=== PATIENT | female | born 1965 | race Caucasian/White ===

== ENCOUNTER 2021-03-13 09:43 | Inpatient (IN) ==
[2021-03-13] MEDS ORDERED: Lactated Ringers 1000 ml BAG 1,000 ML IV ONE ×2 (09:59→14:35)
[2021-03-13] MEDS ORDERED: Albuterol HFA INHALER 8 gm MDI INH ONE (09:59)
[2021-03-13 10:42] LABS: ABS Lymphocytes 0.6 10^3/ul (1.0-4.8); ABS Neutrophils 7.8 10^3/ul (1.5-7.7); Hematocrit 38 % (35-47); Hemoglobin 12.8 g/dL (12.0-16.0); Lymphocyte % 6.8 %; Mean Corpuscular HGB Conc 34 g/dL (31-36); Mean Corpuscular Hemoglobin 32 pg (27-31); Mean Corpuscular Volume 94 fL (80-97); Mean Platelet Volume 9.4 fL (7.4-10.4); Platelet Count 148 10^3/uL (150-450); Red Blood Count 3.97 10^6 /uL (3.70-4.87); Red Cell Distribution Width 14 % (10-15); White Blood Count 9.5 10^3/uL (3.5-10.8)
[2021-03-13 10:55] LABS: Albumin 4.1 g/dL (3.2-5.2); Albumin/Globulin Ratio 1.5 (1-3); Calcium 9.2 mg/dL (8.6-10.3); Globulin 2.8 g/dL (2-4); Total Bilirubin 0.3 mg/dL (0.2-1.0); Total Protein 6.9 g/dL (6.4-8.9); eGFR CKD-EPI 46.2 (>60)
[2021-03-13] MEDS ORDERED: Iodixanol (CONTRAST) 320 MG/ML 100 ML SDV IV ONE (13:17)
[2021-03-13] MEDS ORDERED: cefTRIAXone 2 GM ADDV.VIAL 2 GM in NS 0.9% 100 ml BAG 100 ML IVPB ONE (13:51)
[2021-03-13] MEDS ORDERED: Azithromycin 500 mg/250 ml NS 500 MG/250 ML BAG IVPB ONE (13:51)
[2021-03-13 16:35] LABS: C Reactive Protein 151.12 mg/L (<8.01)
[2021-03-13] MEDS ORDERED: Albuterol HFA INHALER 8 gm MDI INH PRN ×2 (17:08→20:48)
[2021-03-13] MEDS: Enoxaparin 40 MG/0.4 ML SYR SUBCUT SCH (17:58)
[2021-03-13] MEDS ORDERED: CLOZAPINE 200 MG PO SCH (21:00)
[2021-03-13] MEDS: Albuterol/Ipratropium NEB.SOL (2.5/0.5 MG) 3 ML NEB.SOLN INH SCH (21:05)
[2021-03-14] MEDS ORDERED: Albuterol/Ipratropium NEB.SOL (2.5/0.5 MG) 3 ML NEB.SOLN INH ONE (01:01)
[2021-03-14 01:32] LABS: PCO2 Arterial 50 mmHg (35-45); PO2 Arterial 77 mmHg (80-100)
[2021-03-14] MEDS: Albuterol/Ipratropium NEB.SOL (2.5/0.5 MG) 3 ML NEB.SOLN INH SCH ×4 (01:33→19:27)
[2021-03-14] MEDS ORDERED: diPHENhydraMINE 25 mg TAB PO ONE (01:49)
[2021-03-14] MEDS ORDERED: Lactated Ringers 1000 ml BAG 1,000 ML IV ONE (01:49)
[2021-03-14] MEDS: methylPREDNISolone SOD 40 mg/ml 1 ml VIAL IV SCH ×2 (01:58→14:49)
[2021-03-14 06:56] LABS: ABS Lymphocytes 0.5 10^3/ul (1.0-4.8); ABS Monocytes 0.2 10^3/ul (0-0.8); ABS Neutrophils 6.4 10^3/ul (1.5-7.7); Hematocrit 34 % (35-47); Hemoglobin 11.6 g/dL (12.0-16.0); Lymphocyte % 6.7 %; Mean Corpuscular HGB Conc 34 g/dL (31-36); Mean Corpuscular Hemoglobin 32 pg (27-31); Mean Corpuscular Volume 95 fL (80-97); Platelet Count 129 10^3/uL (150-450); Red Blood Count 3.59 10^6 /uL (3.70-4.87); Red Cell Distribution Width 14 % (10-15); White Blood Count 7.1 10^3/uL (3.5-10.8)
[2021-03-14 07:09] LABS: Calcium 9.1 mg/dL (8.6-10.3); Potassium 4.6 mmol/L (3.5-5.0); eGFR CKD-EPI 89.9 (>60)
[2021-03-14] MEDS: Mometasone/Formoter 200/5 MDI INH SCH ×2 (07:28→19:28)
[2021-03-14 13:49] LABS: Ferritin 113.9 ng/mL (11-307)
[2021-03-14] MEDS: cefTRIAXone 2 GM ADDV.VIAL 2 GM in NS 0.9% 100 ml BAG 100 ML IV SCH (14:49)
[2021-03-14] MEDS: Azithromycin 500 mg/250 ml NS 500 MG/250 ML BAG IVPB SCH (16:04)
[2021-03-14] MEDS: Enoxaparin 40 MG/0.4 ML SYR SUBCUT SCH (16:08)
[2021-03-14] MEDS: guaiFENesin 100 mg/5 ml LIQ unit dose cup PO PRN ×2 (18:25→22:16)
[2021-03-15] MEDS: Albuterol/Ipratropium NEB.SOL (2.5/0.5 MG) 3 ML NEB.SOLN INH SCH ×2 (01:58→07:32)
[2021-03-15] MEDS: methylPREDNISolone SOD 40 mg/ml 1 ml VIAL IV SCH ×2 (02:42→15:21)
[2021-03-15 06:47] LABS: Hematocrit 35 % (35-47); Hemoglobin 11.5 g/dL (12.0-16.0); Mean Corpuscular HGB Conc 34 g/dL (31-36); Mean Corpuscular Hemoglobin 32 pg (27-31); Mean Corpuscular Volume 96 fL (80-97); Platelet Count 155 10^3/uL (150-450); Red Blood Count 3.59 10^6 /uL (3.70-4.87); Red Cell Distribution Width 14 % (10-15); White Blood Count 8.7 10^3/uL (3.5-10.8)
[2021-03-15 07:15] LABS: Calcium 9.1 mg/dL (8.6-10.3); Magnesium 1.9 mg/dL (1.9-2.7); Potassium 4.7 mmol/L (3.5-5.0); eGFR CKD-EPI 102.6 (>60)
[2021-03-15] MEDS: Mometasone/Formoter 200/5 MDI INH SCH ×2 (08:59→19:22)
[2021-03-15] MEDS: Albuterol HFA INHALER 8 gm MDI INH SCH ×2 (14:12→19:25)
[2021-03-15] MEDS: Enoxaparin 40 MG/0.4 ML SYR SUBCUT SCH (15:21)
[2021-03-15] MEDS: cefTRIAXone 2 GM ADDV.VIAL 2 GM in NS 0.9% 100 ml BAG 100 ML IV SCH (15:21)
[2021-03-15] MEDS: Azithromycin 500 mg/250 ml NS 500 MG/250 ML BAG IVPB SCH (16:35)
[2021-03-15] MEDS: guaiFENesin 100 mg/5 ml LIQ unit dose cup PO PRN (21:27)
[2021-03-16] MEDS: methylPREDNISolone SOD 40 mg/ml 1 ml VIAL IV SCH (01:11)
[2021-03-16] MEDS: Albuterol HFA INHALER 8 gm MDI INH SCH ×4 (01:30→19:30)
[2021-03-16] MEDS: Mometasone/Formoter 200/5 MDI INH SCH ×2 (07:57→19:32)
[2021-03-16 08:32] LABS: ABS Lymphocytes 0.7 10^3/ul (1.0-4.8); ABS Monocytes 0.5 10^3/ul (0-0.8); ABS Neutrophils 5.7 10^3/ul (1.5-7.7); Hematocrit 35 % (35-47); Hemoglobin 11.7 g/dL (12.0-16.0); Lymphocyte % 10.1 %; Mean Corpuscular HGB Conc 33 g/dL (31-36); Mean Corpuscular Hemoglobin 32 pg (27-31); Mean Corpuscular Volume 97 fL (80-97); Mean Platelet Volume 8.8 fL (7.4-10.4); Platelet Count 174 10^3/uL (150-450); Red Blood Count 3.64 10^6 /uL (3.70-4.87); Red Cell Distribution Width 14 % (10-15); White Blood Count 6.9 10^3/uL (3.5-10.8)
[2021-03-16 08:51] LABS: Calcium 9.6 mg/dL (8.6-10.3); Potassium 4.5 mmol/L (3.5-5.0); eGFR CKD-EPI 100.8 (>60)
[2021-03-16] MEDS ORDERED: Albuterol/Ipratropium NEB.SOL (2.5/0.5 MG) 3 ML NEB.SOLN INH SCH (10:00)
[2021-03-16] MEDS: Enoxaparin 40 MG/0.4 ML SYR SUBCUT SCH ×2 (15:17→16:07)
[2021-03-16] MEDS: cefTRIAXone 2 GM ADDV.VIAL 2 GM in NS 0.9% 100 ml BAG 100 ML IV SCH ×2 (15:17→15:22)
[2021-03-17] MEDS: Albuterol HFA INHALER 8 gm MDI INH SCH ×4 (00:58→20:00)
[2021-03-17 06:26] LABS: Hematocrit 36 % (35-47); Mean Corpuscular HGB Conc 34 g/dL (31-36); Mean Corpuscular Hemoglobin 32 pg (27-31); Mean Corpuscular Volume 94 fL (80-97); Mean Platelet Volume 8.4 fL (7.4-10.4); Platelet Count 194 10^3/uL (150-450); Red Blood Count 3.77 10^6 /uL (3.70-4.87); Red Cell Distribution Width 14 % (10-15); White Blood Count 7.1 10^3/uL (3.5-10.8)
[2021-03-17 06:42] LABS: Calcium 9.7 mg/dL (8.6-10.3); Potassium 4.5 mmol/L (3.5-5.0); eGFR CKD-EPI 102.6 (>60)
[2021-03-17] MEDS: Mometasone/Formoter 200/5 MDI INH SCH ×2 (08:12→23:52)
[2021-03-17 08:38] LABS: ABS Lymphocytes 1.9 10^3/ul (1.0-4.8); ABS Monocytes 0.9 10^3/ul (0-0.8); ABS Neutrophils 4.3 10^3/ul (1.5-7.7); Lymphocyte % 26.9 %; Nucleated Red Blood Cells % 0.1; RBC Morphology Normal (Normal)
[2021-03-17] MEDS: Enoxaparin 40 MG/0.4 ML SYR SUBCUT SCH (16:14)
[2021-03-18] MEDS ORDERED: Albuterol 2.5mg/3 ml (0.083%) NEB.SOLN INH PRN (03:38)
[2021-03-18 03:40] LABS: ABS Lymphocytes 0.9 10^3/ul (1.0-4.8); ABS Monocytes 0.4 10^3/ul (0-0.8); ABS Neutrophils 5.3 10^3/ul (1.5-7.7); Hematocrit 37 % (35-47); Hemoglobin 12.2 g/dL (12.0-16.0); Lymphocyte % 13.9 %; Mean Corpuscular HGB Conc 33 g/dL (31-36); Mean Corpuscular Hemoglobin 31 pg (27-31); Mean Corpuscular Volume 96 fL (80-97); Mean Platelet Volume 8.6 fL (7.4-10.4); Nucleated Red Blood Cells % 0.1; Platelet Count 220 10^3/uL (150-450); Red Cell Distribution Width 14 % (10-15); White Blood Count 6.7 10^3/uL (3.5-10.8)
[2021-03-18 03:57] LABS: Calcium 9.5 mg/dL (8.6-10.3); Potassium 4.6 mmol/L (3.5-5.0); eGFR CKD-EPI 102.6 (>60)
[2021-03-18 05:19] LABS: PCO2 Arterial 62 mmHg (35-45); PO2 Arterial 86 mmHg (80-100)
[2021-03-18] MEDS: Albuterol HFA INHALER 8 gm MDI INH SCH ×2 (07:15→19:59)
[2021-03-18] MEDS: Mometasone/Formoter 200/5 MDI INH SCH ×2 (07:15→19:59)
[2021-03-18] MEDS: guaiFENesin 100 mg/5 ml LIQ unit dose cup PO PRN (11:27)
[2021-03-18 11:34] LABS: C Reactive Protein 15.21 mg/L (<8.01)
[2021-03-18 12:38] LABS: Erythrocyte Sed Rate 5 mm/Hr (0-29)
[2021-03-18] MEDS: Enoxaparin 40 MG/0.4 ML SYR SUBCUT SCH (17:42)
[2021-03-19] MEDS: Albuterol HFA INHALER 8 gm MDI INH SCH ×2 (08:11→20:01)
[2021-03-19] MEDS: Mometasone/Formoter 200/5 MDI INH SCH ×2 (08:12→20:01)
[2021-03-19 10:11] LABS: Hematocrit 39 % (35-47); Hemoglobin 12.8 g/dL (12.0-16.0); Mean Corpuscular HGB Conc 33 g/dL (31-36); Mean Corpuscular Hemoglobin 31 pg (27-31); Mean Corpuscular Volume 95 fL (80-97); Mean Platelet Volume 8.1 fL (7.4-10.4); Platelet Count 244 10^3/uL (150-450); Red Cell Distribution Width 14 % (10-15); White Blood Count 8.8 10^3/uL (3.5-10.8)
[2021-03-19 10:31] LABS: Anion Gap 7 mmol/L (2-11); Blood Urea Nitrogen 18 mg/dL (6-24); C Reactive Protein 8.22 mg/L (<8.01); CO2 Carbon Dioxide 35 mmol/L (22-32); Calcium 9.6 mg/dL (8.6-10.3); Chloride 96 mmol/L (101-111); Glucose 200 mg/dL (70-100); Magnesium 1.9 mg/dL (1.9-2.7); Sodium 138 mmol/L (135-145); eGFR CKD-EPI 94.3 (>60)
[2021-03-19 10:57] LABS: Rheumatoid Factor < 10 IU/mL (<15)
[2021-03-19] MEDS: Enoxaparin 40 MG/0.4 ML SYR SUBCUT SCH (18:00)
[2021-03-19] MEDS: guaiFENesin 100 mg/5 ml LIQ unit dose cup PO PRN (21:33)
[2021-03-20 06:51] LABS: Hematocrit 39 % (35-47); Hemoglobin 12.9 g/dL (12.0-16.0); Mean Corpuscular HGB Conc 33 g/dL (31-36); Mean Corpuscular Hemoglobin 32 pg (27-31); Mean Corpuscular Volume 95 fL (80-97); Mean Platelet Volume 8.5 fL (7.4-10.4); Platelet Count 254 10^3/uL (150-450); Red Blood Count 4.08 10^6 /uL (3.70-4.87); Red Cell Distribution Width 14 % (10-15); White Blood Count 10.3 10^3/uL (3.5-10.8)
[2021-03-20 07:00] LABS: ABS Lymphocytes 1.3 10^3/ul (1.0-4.8); ABS Monocytes 0.4 10^3/ul (0-0.8); ABS Neutrophils 8.5 10^3/ul (1.5-7.7); Lymphocyte % 12.8 %
[2021-03-20 07:14] LABS: Calcium 9.8 mg/dL (8.6-10.3); Magnesium 1.9 mg/dL (1.9-2.7); Potassium 4.7 mmol/L (3.5-5.0); eGFR CKD-EPI 100.8 (>60)
[2021-03-20] MEDS: Albuterol HFA INHALER 8 gm MDI INH SCH ×2 (07:39→19:45)
[2021-03-20] MEDS: Mometasone/Formoter 200/5 MDI INH SCH ×2 (07:39→19:45)
[2021-03-20] MEDS: Enoxaparin 40 MG/0.4 ML SYR SUBCUT SCH (18:43)
[2021-03-21 06:24] LABS: Hematocrit 42 % (35-47); Hemoglobin 13.7 g/dL (12.0-16.0); Mean Corpuscular HGB Conc 33 g/dL (31-36); Mean Corpuscular Hemoglobin 31 pg (27-31); Mean Corpuscular Volume 95 fL (80-97); Mean Platelet Volume 8.4 fL (7.4-10.4); Platelet Count 273 10^3/uL (150-450); Red Blood Count 4.37 10^6 /uL (3.70-4.87); Red Cell Distribution Width 13 % (10-15); White Blood Count 11.9 10^3/uL (3.5-10.8)
[2021-03-21 06:42] LABS: Calcium 9.7 mg/dL (8.6-10.3); Potassium 4.6 mmol/L (3.5-5.0); eGFR CKD-EPI 102.6 (>60)
[2021-03-21] MEDS: Mometasone/Formoter 200/5 MDI INH SCH ×2 (07:37→20:24)
[2021-03-21] MEDS: Albuterol HFA INHALER 8 gm MDI INH SCH ×2 (07:41→20:24)
[2021-03-21 08:29] LABS: ABS Lymphocytes 1.3 10^3/ul (1.0-4.8); ABS Monocytes 0.6 10^3/ul (0-0.8); Lymphocyte % 11.2 %; Nucleated Red Blood Cells % 0.1
[2021-03-21] MEDS: Enoxaparin 40 MG/0.4 ML SYR SUBCUT SCH (20:40)
[2021-03-21] MEDS: Nicotine Lozenge mini 2 MG LOZNG.MINI MT PRN (20:42)
[2021-03-22 06:44] LABS: Hematocrit 40 % (35-47); Hemoglobin 13.1 g/dL (12.0-16.0); Mean Corpuscular HGB Conc 33 g/dL (31-36); Mean Corpuscular Hemoglobin 31 pg (27-31); Mean Corpuscular Volume 95 fL (80-97); Platelet Count 260 10^3/uL (150-450); Red Blood Count 4.19 10^6 /uL (3.70-4.87); Red Cell Distribution Width 14 % (10-15)
[2021-03-22 07:01] LABS: Calcium 9.6 mg/dL (8.6-10.3); Potassium 4.3 mmol/L (3.5-5.0); eGFR CKD-EPI 101.9 (>60)
[2021-03-22] MEDS: Mometasone/Formoter 200/5 MDI INH SCH ×2 (08:28→20:10)
[2021-03-22] MEDS: Albuterol HFA INHALER 8 gm MDI INH SCH ×2 (08:28→20:11)
[2021-03-22 10:39] LABS: Complement C3 112 mg/dL (75 - 175)
[2021-03-22 11:00] LABS: Anti SSA/RO Antibody <0.2 U; JO-1 Antibody <0.2 U; SS-B/La Antibody <0.2 U
[2021-03-22 11:56] LABS: Aldolase 10.3 U/L (<7.7)
[2021-03-22] MEDS: Nicotine Lozenge mini 2 MG LOZNG.MINI MT PRN (15:51)
[2021-03-22 16:45] LABS: Cyclic Citrullinated Pept IgG <15.6 U
[2021-03-22] MEDS: Enoxaparin 40 MG/0.4 ML SYR SUBCUT SCH (17:44)
[2021-03-23 06:17] LABS: Hematocrit 43 % (35-47); Hemoglobin 13.9 g/dL (12.0-16.0); Mean Corpuscular HGB Conc 33 g/dL (31-36); Mean Corpuscular Hemoglobin 31 pg (27-31); Mean Corpuscular Volume 95 fL (80-97); Platelet Count 264 10^3/uL (150-450); Red Blood Count 4.48 10^6 /uL (3.70-4.87); Red Cell Distribution Width 14 % (10-15); White Blood Count 14.5 10^3/uL (3.5-10.8)
[2021-03-23 06:19] LABS: ABS Lymphocytes 1.5 10^3/ul (1.0-4.8); ABS Monocytes 0.5 10^3/ul (0-0.8); ABS Neutrophils 12.6 10^3/ul (1.5-7.7); Lymphocyte % 10.1 %
[2021-03-23 06:35] LABS: Calcium 9.5 mg/dL (8.6-10.3); Potassium 4.5 mmol/L (3.5-5.0); eGFR CKD-EPI 97.5 (>60)
[2021-03-23] MEDS: Mometasone/Formoter 200/5 MDI INH SCH ×2 (08:53→19:51)
[2021-03-23] MEDS: Albuterol HFA INHALER 8 gm MDI INH SCH ×2 (08:54→19:54)
[2021-03-23] MEDS: Enoxaparin 40 MG/0.4 ML SYR SUBCUT SCH (17:06)
[2021-03-24] MEDS ORDERED: Albuterol HFA INHALER 8 gm MDI INH PRN (07:17)
[2021-03-24] MEDS: Albuterol HFA INHALER 8 gm MDI INH SCH (08:28)
[2021-03-24] MEDS: Mometasone/Formoter 200/5 MDI INH SCH (08:31)
[2021-03-24 11:51] VITALS: BP 119/64
[2021-03-24] MEDS ORDERED: Calcium Carb (TUMS) 500 mg CHEW TAB PO PRN (12:01)
== END 2021-03-24 14:05 | DRG 720 ==
LOC: ED 09:43 → SUATTDRO 16:55 → EDHOLD 17:22 → MEDTELE 23:21
PROVIDERS: ADMIT Internal Medicine; ATTEND Internal Medicine

== ENCOUNTER 2022-05-24 00:21 | Inpatient (IN) ==
[2022-05-24 02:32] LABS: ABS Lymphocytes 1.1 10^3/ul (1.0-4.8); ABS Monocytes 0.7 10^3/ul (0-0.8); ABS Neutrophils 4.9 10^3/ul (1.5-7.7); Hematocrit 39 % (35-47); Hemoglobin 12.6 g/dL (12.0-16.0); Lymphocyte % 16.1 %; Mean Corpuscular HGB Conc 32 g/dL (31-36); Mean Corpuscular Hemoglobin 30 pg (27-31); Mean Corpuscular Volume 93 fL (80-97); Mean Platelet Volume 7.7 fL (7.4-10.4); Platelet Count 210 10^3/uL (150-450); Red Cell Distribution Width 15 % (10-15); White Blood Count 6.7 10^3/uL (3.5-10.8)
[2022-05-24 02:38] LABS: INR 1.1 (0.88-1.18)
[2022-05-24 02:55] LABS: High Sens Troponin Baseline 5 pg/mL (<15)
[2022-05-24 03:20] LABS: ALT 15 U/L (7-52); AST 14 U/L (13-39); Albumin 3.7 g/dL (3.2-5.2); Albumin/Globulin Ratio 1.8 (1-3); Alkaline Phosphatase 85 U/L (35-149); Blood Urea Nitrogen 10 mg/dL (6-24); C Reactive Protein 22.17 mg/L (<8.01); CO2 Carbon Dioxide 35 mmol/L (22-32); Calcium 8.5 mg/dL (8.6-10.3); Chloride 96 mmol/L (101-111); Creatinine, Serum 0.65 mg/dL (0.51-0.95); Globulin 2.1 g/dL (2-4); Glucose 106 mg/dL (70-100); Magnesium 1.9 mg/dL (1.9-2.7); Potassium 4.8 mmol/L (3.5-5.0); Sodium 130 mmol/L (135-145); Total Protein 5.8 g/dL (6.4-8.9)
[2022-05-24] MEDS ORDERED: Iohexol 350 (CONTRAST) 500 ML MDV IV ONE (03:36)
[2022-05-24 03:58] LABS: High Sensitivity Troponin 1 Hr 6 pg/mL (<15)
[2022-05-24 04:44] LABS: Urine Appearance Clear; Urine Bilirubin Negative (Negative); Urine Blood 2+ (Negative); Urine Color Straw; Urine Glucose Negative (Negative); Urine Ketones Negative (Negative); Urine Nitrite Negative (Negative); Urine Protein Negative (Negative); Urine Specific Gravity 1.002 (1.002-1.030); Urine Urobilinogen Negative (Negative)
[2022-05-24 04:45] LABS: Urine Bacteria 1+ (Absent); Urine Red Blood Cell Trace(0-2/hpf) (Absent); Urine White Blood Cell Trace(0-5/hpf) (Absent)
[2022-05-24] MEDS ORDERED: methylPREDNISolone SOD SUCC 125 mg 2 ML VIAL IV ONE (07:03)
[2022-05-24] MEDS ORDERED: cefTRIAXone 1 gm/50 mL D5W 1 GM/50 ML BAG IV ONE (07:03)
[2022-05-24] MEDS ORDERED: Azithromycin 500 mg/250 ml NS 500 MG/250 ML BAG IVPB ONE ×2 (07:03→12:03)
[2022-05-24] MEDS ORDERED: methylPREDNISolone SOD SUCC 40 mg/ml 1 ml VIAL IV ONE (12:03)
[2022-05-24] MEDS: Albuterol 2.5mg/3 ml (0.083%) NEB.SOLN INH SCH ×4 (14:20→21:26)
[2022-05-24] MEDS: Mometasone/Formoter 200/5 MDI INH SCH ×2 (14:24→19:38)
[2022-05-24] MEDS: Enoxaparin 40 MG/0.4 ML SYR SUBCUT SCH (14:53)
[2022-05-24] MEDS: Nystatin SUSPENSION 100,000 UNITS/ML UDC PO SCH ×2 (17:47→21:10)
[2022-05-24] MEDS: Nicotine PATCH 14 MG/24 HR PATCH TRANSDERM SCH (17:47)
[2022-05-24] MEDS: Polyethylene Glycol 3350 17 GM PACKET PO SCH (21:18)
[2022-05-25] MEDS: Albuterol 2.5mg/3 ml (0.083%) NEB.SOLN INH SCH ×4 (01:29→19:32)
[2022-05-25] MEDS: Benzocaine (plain) Lozenge 15 MG MT PRN ×2 (05:55→20:07)
[2022-05-25 06:54] LABS: ABS Lymphocytes 0.7 10^3/ul (1.0-4.8); ABS Monocytes 0.8 10^3/ul (0-0.8); ABS Neutrophils 8.6 10^3/ul (1.5-7.7); Hematocrit 40 % (35-47); Hemoglobin 12.9 g/dL (12.0-16.0); Lymphocyte % 7.2 %; Mean Corpuscular HGB Conc 33 g/dL (31-36); Mean Corpuscular Hemoglobin 31 pg (27-31); Mean Corpuscular Volume 94 fL (80-97); Mean Platelet Volume 8.4 fL (7.4-10.4); Nucleated Red Blood Cells % 0.1; Platelet Count 214 10^3/uL (150-450); Red Blood Count 4.22 10^6 /uL (3.70-4.87); Red Cell Distribution Width 16 % (10-15); White Blood Count 10.2 10^3/uL (3.5-10.8)
[2022-05-25] MEDS ORDERED: Albuterol 2.5mg/3 ml (0.083%) NEB.SOLN INH SCH (07:00)
[2022-05-25 07:06] LABS: Blood Urea Nitrogen 9 mg/dL (6-24); CO2 Carbon Dioxide 39 mmol/L (22-32); Calcium 9.3 mg/dL (8.6-10.3); Chloride 96 mmol/L (101-111); Creatinine, Serum 0.62 mg/dL (0.51-0.95); Glucose 96 mg/dL (70-100); Potassium 4.5 mmol/L (3.5-5.0); Sodium 134 mmol/L (135-145); eGFR CKD-EPI 103.2 (>60)
[2022-05-25] MEDS: Mometasone/Formoter 200/5 MDI INH SCH ×2 (07:06→19:32)
[2022-05-25] MEDS: Nicotine PATCH 14 MG/24 HR PATCH TRANSDERM SCH (08:18)
[2022-05-25] MEDS: Nystatin SUSPENSION 100,000 UNITS/ML UDC PO SCH ×4 (08:18→20:06)
[2022-05-25] MEDS: Nicotine Lozenge mini 2 MG LOZNG.MINI MT PRN ×5 (11:33→22:39)
[2022-05-25] MEDS: Enoxaparin 40 MG/0.4 ML SYR SUBCUT SCH (11:34)
[2022-05-25] MEDS: Polyethylene Glycol 3350 17 GM PACKET PO SCH (20:05)
[2022-05-26] MEDS: Nicotine Lozenge mini 2 MG LOZNG.MINI MT PRN ×6 (00:41→18:53)
[2022-05-26] MEDS: Albuterol 2.5mg/3 ml (0.083%) NEB.SOLN INH SCH ×4 (00:56→19:59)
[2022-05-26] MEDS: Mometasone/Formoter 200/5 MDI INH SCH ×3 (07:11→20:16)
[2022-05-26] MEDS: Nicotine PATCH 14 MG/24 HR PATCH TRANSDERM SCH (09:01)
[2022-05-26] MEDS: Nystatin SUSPENSION 100,000 UNITS/ML UDC PO SCH ×4 (09:04→20:48)
[2022-05-26] MEDS: SPIRIVA Respimat (tiotropium) 2.5 mcg/inh Inhaler INH SCH (11:20)
[2022-05-26] MEDS: Enoxaparin 40 MG/0.4 ML SYR SUBCUT SCH (11:31)
[2022-05-26] MEDS: Polyethylene Glycol 3350 17 GM PACKET PO SCH (20:49)
[2022-05-27] MEDS: Nicotine Lozenge mini 2 MG LOZNG.MINI MT PRN ×7 (00:54→21:23)
[2022-05-27] MEDS: Albuterol 2.5mg/3 ml (0.083%) NEB.SOLN INH SCH ×4 (01:12→19:00)
[2022-05-27] MEDS: Mometasone/Formoter 200/5 MDI INH SCH ×2 (06:49→19:00)
[2022-05-27] MEDS: Nicotine PATCH 14 MG/24 HR PATCH TRANSDERM SCH (09:15)
[2022-05-27] MEDS: Nystatin SUSPENSION 100,000 UNITS/ML UDC PO SCH ×4 (09:18→21:17)
[2022-05-27] MEDS: SPIRIVA Respimat (tiotropium) 2.5 mcg/inh Inhaler INH SCH (09:23)
[2022-05-27] MEDS: Enoxaparin 40 MG/0.4 ML SYR SUBCUT SCH (12:48)
[2022-05-27] MEDS: Polyethylene Glycol 3350 17 GM PACKET PO SCH (21:17)
[2022-05-28] MEDS: Albuterol 2.5mg/3 ml (0.083%) NEB.SOLN INH SCH ×2 (00:01→07:20)
[2022-05-28] MEDS: Nicotine Lozenge mini 2 MG LOZNG.MINI MT PRN ×2 (06:24→10:48)
[2022-05-28] MEDS: Mometasone/Formoter 200/5 MDI INH SCH (07:20)
[2022-05-28] MEDS: SPIRIVA Respimat (tiotropium) 2.5 mcg/inh Inhaler INH SCH (07:21)
[2022-05-28] MEDS: Nicotine PATCH 14 MG/24 HR PATCH TRANSDERM SCH (10:46)
[2022-05-28] MEDS: Nystatin SUSPENSION 100,000 UNITS/ML UDC PO SCH (10:46)
[2022-05-28 11:46] VITALS: BP 125/83
== END 2022-05-28 13:33 | DRG 140 ==
LOC: EDHOLD 00:21 → ED 00:21 → SUATTDRO 07:06 → EDHOLD 13:23 → MEDTELE 13:27 → SUATTDRO 05-25 15:42 → SSU 05-25 22:23
PROVIDERS: ADMIT Internal Medicine; ATTEND Internal Medicine

== ENCOUNTER 2023-02-25 01:46 | Inpatient (IN) ==
[2023-02-25 03:03] LABS: ABS Lymphocytes 1.7 10^3/uL (1.0-4.8); ABS Monocytes 0.7 10^3/uL (0.0-0.9); ABS Neutrophils 4.5 10^3/uL (1.5-7.6); ABS Nucleated RBC 0.01 10^3/ul; Eosinophil % 0.1 %; Hematocrit 40.5 % (35-45); Hemoglobin 13.7 g/dL (11.5-14.3); Lymphocyte % 24.7 %; Mean Corpuscular Hemoglobin 32.2 pg (27-33); Mean Corpuscular Hgb Conc 33.9 g/dL (31-36); Mean Corpuscular Volume 95.1 fL (80-97); Nucleated Red Blood Cells % 0.1 %/100WBC (0.0-0.8); Platelet Count 177 10^3/uL (150-450); Red Blood Count 4.26 10^6/uL (3.63-4.92); Red Cell Distribution Width 14.8 % (12-17)
[2023-02-25 03:47] LABS: ALT 27 U/L (7-52); AST 25 U/L (13-39); Albumin 4.1 g/dL (3.2-5.2); Albumin/Globulin Ratio 1.6 (1-3); Alkaline Phosphatase 76 U/L (35-149); Anion Gap 10 mmol/L (2-16); Blood Urea Nitrogen 14 mg/dL (6-24); CO2 Carbon Dioxide 25 mmol/L (22-32); Calcium 9.7 mg/dL (8.6-10.3); Chloride 101 mmol/L (101-111); Creatinine, Serum 1.03 mg/dL (0.51-0.95); Globulin 2.6 g/dL (2-4); Glucose 88 mg/dL (70-100); Potassium 4.2 mmol/L (3.5-5.0); Sodium 136 mmol/L (135-145); Total Bilirubin 0.4 mg/dL (0.2-1.0); Total Protein 6.7 g/dL (6.4-8.9); eGFR CKD-EPI 62.6 (>60)
[2023-02-25 04:00] LABS: Alcohol, S < 13 mg/dL (<13)
[2023-02-25 04:26] LABS: TSH Ultra Thyroid Stim Horm 1.73 mcIU/mL (0.34-5.60)
[2023-02-25 04:34] LABS: Urine Appearance Turbid; Urine Bilirubin Negative (Negative); Urine Blood Negative (Negative); Urine Color Yellow; Urine Glucose Negative (Negative); Urine Ketones Negative (Negative); Urine Nitrite Negative (Negative); Urine Protein 1+(30 mg/dL) (Negative); Urine Specific Gravity 1.011 (1.002-1.030); Urine Urobilinogen Negative (Negative)
[2023-02-25 04:41] LABS: Urine Bacteria 2+ (Absent); Urine Red Blood Cell 3+(>10/hpf) (Absent); Urine Squamous Epithelial Cell Present (Absent); Urine White Blood Cell 3+(>20/hpf) (Absent)
[2023-02-25 04:53] LABS: Urine Benzodiazepine Screen None Detected (None Detect); Urine Cannabinoids Screen Presumptive Positive (None Detect); Urine Opiates Screen None Detected (None Detect)
[2023-02-25] MEDS ORDERED: Nitrofurantoin (monohydrate/macrocrystals) 100 mg CAP PO ONE (04:55)
[2023-02-25] MEDS ORDERED: Al Hydrox/Mg Hydrox/Simet LIQ 30 ML UDC PO PRN (09:39)
[2023-02-25] MEDS ORDERED: Albuterol HFA INHALER 8 gm MDI INH PRN (09:40)
[2023-02-25] MEDS ORDERED: Polyethylene Glycol 3350 17 GM PACKET PO PRN (09:50)
[2023-02-25] MEDS: Mometasone/Formoter 200/5 MDI INH SCH (19:31)
[2023-02-25] MEDS: Nitrofurantoin (monohydrate/macrocrystals) 100 mg CAP PO SCH (20:16)
[2023-02-26] MEDS: Nitrofurantoin (monohydrate/macrocrystals) 100 mg CAP PO SCH ×2 (09:55→20:03)
[2023-02-26] MEDS: Mometasone/Formoter 200/5 MDI INH SCH ×2 (09:55→19:58)
[2023-02-27] MEDS: Mometasone/Formoter 200/5 MDI INH SCH ×2 (08:16→20:42)
[2023-02-27] MEDS: Nitrofurantoin (monohydrate/macrocrystals) 100 mg CAP PO SCH ×2 (08:59→20:41)
[2023-02-27] MEDS: Nicotine Lozenge mini 2 MG LOZNG.MINI MT PRN ×5 (14:59→23:03)
[2023-02-27 19:32] LABS: Clozapine 490 ng/mL (350-600); Clozapine & Norclozapine Level 707 ng/mL; Norclozapine 217 ng/mL
[2023-02-28] MEDS: Nicotine Lozenge mini 2 MG LOZNG.MINI MT PRN ×8 (02:45→20:31)
[2023-02-28] MEDS: Mometasone/Formoter 200/5 MDI INH SCH ×2 (07:28→18:30)
[2023-02-28] MEDS: Nitrofurantoin (monohydrate/macrocrystals) 100 mg CAP PO SCH ×2 (08:49→20:23)
[2023-03-01] MEDS: Nicotine Lozenge mini 2 MG LOZNG.MINI MT PRN ×9 (01:22→21:05)
[2023-03-01] MEDS: Mometasone/Formoter 200/5 MDI INH SCH ×2 (06:03→21:01)
[2023-03-01] MEDS: Nitrofurantoin (monohydrate/macrocrystals) 100 mg CAP PO SCH ×2 (08:09→21:04)
[2023-03-02] MEDS: Nicotine Lozenge mini 2 MG LOZNG.MINI MT PRN ×8 (00:39→21:50)
[2023-03-02] MEDS: Mometasone/Formoter 200/5 MDI INH SCH ×2 (05:50→21:45)
[2023-03-03] MEDS: Nicotine Lozenge mini 2 MG LOZNG.MINI MT PRN ×8 (01:42→22:51)
[2023-03-03] MEDS: Mometasone/Formoter 200/5 MDI INH SCH ×2 (08:21→20:45)
[2023-03-04] MEDS: Nicotine Lozenge mini 2 MG LOZNG.MINI MT PRN ×2 (02:05→08:21)
[2023-03-04] MEDS: Mometasone/Formoter 200/5 MDI INH SCH (07:04)
[2023-03-04 08:44] VITALS: BP 125/67
== END 2023-03-04 12:08 | disposition home or self-care (01) | DRG 750 ==
LOC: ED 01:46 → EDHOLD 09:39 → BSU 10:46
PROVIDERS: ADMIT Psychiatry & Neurology Psychiatry; ATTEND Psychiatry & Neurology Psychiatry